=== PATIENT | male | born 2000 | race Caucasian/White ===

== ENCOUNTER 2019-05-29 09:17 | Emergency (ER) | payer MEDICAID, SELFPAY ==
[~2019-05-29] VITALS: Ht 185.4 cm; Wt 86.6 kg
--- NOTE | 2019-05-29 10:21 | REP ---
CT brain: 05/29/2019. Indication: Headache. Comparison: None. Technique: Unenhanced axial CT images of the brain were obtained from skull base to vertex. Findings: There is a right parietal approach ventriculostomy shunt catheter with decompression of the right lateral ventricle. The left lateral ventricle is moderately prominent. There is no shift of the midline structures. Midline small posterior fossa arachnoid cyst is noted. There is no acute intracranial hemorrhage or acute cortical infarction. The visualized paranasal sinuses and mastoid air cells are clear. Impression: Right-sided ventriculostomy shunt catheter with complete decompression of the right lateral ventricle. Moderately prominent left lateral ventricle. Correlation with previous imaging is recommended. No acute intracranial hemorrhage. Electronically Signed by Binh Cleveland DO 05/29/2019 10:12 A
--- NOTE | 2019-05-29 10:46 | REP ---
VENTRICULOPERITONEAL SHUNT SERIES: Eight views. HISTORY: Right-sided head and neck pain. FINDINGS: An intact ventriculoperitoneal shunt catheter is seen from right-sided ventriculostomy extending through the soft tissues of the neck, the precordial soft tissues and into the abdomen looped in the pelvic peritoneum. Adjacent to this in the right neck, there is an old disconnected segment of shunt tubing. This measures approximately 16 cm in length. There is visible mineral deposit surrounding this segment of retained shunt catheter in the right neck soft tissues. The lungs are clear. No bony abnormality is seen. IMPRESSION: Intact right ventriculoperitoneal shunt catheter. There is a 16 cm segment of old retained shunt catheter material in the right neck soft tissues with some surrounding mineral deposition. Electronically Signed by Chris Coon MD 05/29/2019 03:32 P
[2019-05-29 12:19] VITALS: BP 134/66
== END 2019-05-29 12:23 | disposition short-term general hospital (02) ==
LOC: M ED 09:17
DX: T85.09XA Other mechanical complication of ventricular intracranial (communicating) shunt, initial encounter (principal); R51 Headache; G91.9 Hydrocephalus, unspecified